=== PATIENT | male | born 1985 | race Two or more races ===

== ENCOUNTER 2024-03-21 11:12 | Inpatient (IN) | payer OTHER ==
[~2024-03-21] VITALS: Ht 165.1 cm; Wt 108.9 kg
[2024-03-21 12:40] LABS: BASOPHILS % (AUTO) 0.5 % (0.0-2.0); EOSINOPHILS # (AUTO) 0.1 K/uL (0.0-0.7); HEMATOCRIT 45 % (39-51); HEMOGLOBIN 15.1 g/dL (13.5-17.5); LYMPHOCYTES # (AUTO) 1.6 K/uL (0.8-4.8); LYMPHOCYTES % (AUTO) 24.7 % (20.0-44.0); MEAN CORPUSCULAR HEMOGLOBIN 29 PG (26.0-33.0); MEAN CORPUSCULAR HGB CONC 34 g/dl (31.0-36.0); MEAN CORPUSCULAR VOLUME 84 fL (80-96); MONOCYTES # (AUTO) 0.7 K/uL (0.1-1.30); MONOCYTES % (AUTO) 9.9 % (2.0-12.0); NEUTROPHILS # (AUTO) 4.2 K/uL (1.8-8.9); NEUTROPHILS % (AUTO) 63.9 % (43.0-81.0); PLATELET COUNT (AUTO) 230 K/uL (150-450); RED BLOOD CELL COUNT(AUTO) 5.29 MIL/uL (4.5-6.0); RED CELL DISTRIBUTION WIDTH 14.3 % (11.5-15.0); WHITE BLOOD COUNT (AUTO) 6.6 K/uL (4.3-11.0)
[2024-03-21 12:47] LABS: CREATININE 0.8 mg/dL (0.6-1.3); POTASSIUM 3.8 mmol/L (3.5-5.1)
[2024-03-21] MEDS: IV NS 0.9% 1,000 ML BAG IV ONE (13:42)
[2024-03-21] MEDS ORDERED: DESM0.2T4 PO (13:58)
[2024-03-21] MEDS ORDERED: TEMAZEPAM 15 MG CAPSULE PO PRN (16:30)
[2024-03-21] MEDS ORDERED: Z GUARD REMEDY 4 OZ OINT TP PRN (16:30)
[2024-03-21] MEDS ORDERED: ACETAMINOPHEN 325 MG TABLET PO PRN (16:30)
[2024-03-21] MEDS ORDERED: MAG HYDROX/AL HYDROX/SIMETH 30 ML UDC PO PRN (16:30)
[2024-03-21] MEDS ORDERED: MAGNESIUM HYDROXIDE 30 ML UDC PO PRN (16:30)
[2024-03-21 18:20] VITALS: BP 137/83; TEMP 98.1; O2SAT 98
[2024-03-21 20:00] VITALS: BP 137/88; TEMP 98; O2SAT 97
[2024-03-21] MEDS: DESMOPRESSIN ACETATE 0.1 MG TABLET PO SCH (21:07)
[2024-03-21] MEDS: PANTOPRAZOLE 40 MG TABLET.DR PO SCH (21:07)
[2024-03-21] MEDS: HYDROCODONE/APAP 5/325MG TABLET PO PRN (21:08)
[2024-03-21] MEDS: IV NS 0.9% 1,000 ML IV PRN (23:06)
[2024-03-22] VITALS: BP 129/79; TEMP 97.9; O2SAT 97
[2024-03-22 04:00] VITALS: BP 132/76; TEMP 98.2; O2SAT 97
[2024-03-22 06:30] LABS: CALCIUM, SERUM 8.3 mg/dL (8.5-10.1); CREATININE 0.7 mg/dL (0.6-1.3); MAGNESIUM 1.7 mg/dL (1.8-2.4); PHOSPHORUS 2.4 mg/dL (2.5-4.9); POTASSIUM 3.8 mmol/L (3.5-5.1)
[2024-03-22 07:23] LABS: BASOPHILS % (AUTO) 0.4 % (0.0-2.0); EOSINOPHILS # (AUTO) 0.1 K/uL (0.0-0.7); EOSINOPHILS % (AUTO) 1.2 % (0.0-6.0); HEMATOCRIT 42 % (39-51); HEMOGLOBIN 14.3 g/dL (13.5-17.5); LYMPHOCYTES # (AUTO) 1.7 K/uL (0.8-4.8); LYMPHOCYTES % (AUTO) 23.1 % (20.0-44.0); MEAN CORPUSCULAR HEMOGLOBIN 29 PG (26.0-33.0); MEAN CORPUSCULAR HGB CONC 34 g/dl (31.0-36.0); MEAN CORPUSCULAR VOLUME 85 fL (80-96); MONOCYTES # (AUTO) 0.7 K/uL (0.1-1.30); MONOCYTES % (AUTO) 9.3 % (2.0-12.0); NEUTROPHILS # (AUTO) 4.8 K/uL (1.8-8.9); PLATELET COUNT (AUTO) 222 K/uL (150-450); RED BLOOD CELL COUNT(AUTO) 4.95 MIL/uL (4.5-6.0); RED CELL DISTRIBUTION WIDTH 14.3 % (11.5-15.0); WHITE BLOOD COUNT (AUTO) 7.3 K/uL (4.3-11.0)
[2024-03-22 08:00] VITALS: BP 129/76; TEMP 98.8; O2SAT 94
[2024-03-22] MEDS: MAGNESIUM OXIDE 400 MG TABLET PO ONE (10:51)
[2024-03-22] MEDS: K PHOS NEUTRAL 250 MG TABLET PO ONE (15:50)
[2024-03-22 16:00] VITALS: BP 114/64; TEMP 98.1; O2SAT 93
[2024-03-22 20:00] VITALS: BP 127/75; TEMP 98.8; O2SAT 97
[2024-03-22] MEDS: DESMOPRESSIN ACETATE 0.1 MG TABLET PO SCH (20:40)
[2024-03-22] MEDS: HYDROCODONE/APAP 10/325MG TABLET PO PRN (20:50)
[2024-03-23] VITALS: BP 127/75; TEMP 98.8; O2SAT 97
[2024-03-23 06:58] LABS: CALCIUM, SERUM 7.2 mg/dL (8.5-10.1); CREATININE 0.8 mg/dL (0.6-1.3); POTASSIUM 3.8 mmol/L (3.5-5.1)
[2024-03-23 08:00] VITALS: BP 137/78; TEMP 97.5; O2SAT 97
[2024-03-23 16:00] VITALS: BP 113/71; TEMP 98.1; O2SAT 100
[2024-03-23] MEDS: IV NS 0.9% 1,000 ML IV PRN (18:45)
[2024-03-24] VITALS: BP 118/71; TEMP 98.6; O2SAT 100
[2024-03-24 04:00] VITALS: BP 125/75; TEMP 97.4; O2SAT 100
[2024-03-24 06:36] LABS: CALCIUM, SERUM 7.6 mg/dL (8.5-10.1); CREATININE 0.8 mg/dL (0.6-1.3)
[2024-03-24] MEDS: ONDANSETRON HCL/PF 4 MG/2 ML VIAL IVP PRN (07:57)
[2024-03-24 08:00] VITALS: BP 124/76; TEMP 98; O2SAT 97
[2024-03-24 16:00] VITALS: BP 137/85; TEMP 97.9; O2SAT 97
[2024-03-25] VITALS: BP 133/76; TEMP 97.2; O2SAT 99
[2024-03-25 06:58] LABS: CALCIUM, SERUM 7.5 mg/dL (8.5-10.1); CREATININE 0.8 mg/dL (0.6-1.3); POTASSIUM 3.8 mmol/L (3.5-5.1)
[2024-03-25 08:00] VITALS: BP 119/79; TEMP 97.1; O2SAT 99
[2024-03-25] MEDS: DESMOPRESSIN ACETATE 0.1 MG TABLET PO SCH (08:47)
[2024-03-25 16:00] VITALS: BP 134/80; TEMP 97.6; O2SAT 100
[2024-03-25 20:00] VITALS: BP 131/81; TEMP 98.8; O2SAT 100
[2024-03-26] VITALS: BP 131/81; TEMP 98.8; O2SAT 100
[2024-03-26 07:03] LABS: BASOPHILS % (AUTO) 0.3 % (0.0-2.0); EOSINOPHILS # (AUTO) 0.1 K/uL (0.0-0.7); EOSINOPHILS % (AUTO) 1.7 % (0.0-6.0); HEMATOCRIT 38 % (39-51); HEMOGLOBIN 13.8 g/dL (13.5-17.5); LYMPHOCYTES # (AUTO) 1.5 K/uL (0.8-4.8); LYMPHOCYTES % (AUTO) 19.9 % (20.0-44.0); MEAN CORPUSCULAR HEMOGLOBIN 30 PG (26.0-33.0); MEAN CORPUSCULAR HGB CONC 36 g/dl (31.0-36.0); MEAN CORPUSCULAR VOLUME 81 fL (80-96); MONOCYTES # (AUTO) 0.7 K/uL (0.1-1.30); MONOCYTES % (AUTO) 9.4 % (2.0-12.0); NEUTROPHILS # (AUTO) 5.3 K/uL (1.8-8.9); NEUTROPHILS % (AUTO) 68.7 % (43.0-81.0); PLATELET COUNT (AUTO) 227 K/uL (150-450); RED BLOOD CELL COUNT(AUTO) 4.67 MIL/uL (4.5-6.0); RED CELL DISTRIBUTION WIDTH 13.5 % (11.5-15.0); WHITE BLOOD COUNT (AUTO) 7.7 K/uL (4.3-11.0)
[2024-03-26 07:33] LABS: ALBUMIN 3.2 g/dL (3.4-5.0); BILIRUBIN,TOTAL 0.8 mg/dL (0.2-1.0); CALCIUM, SERUM 7.8 mg/dL (8.5-10.1); CREATININE 0.6 mg/dL (0.6-1.3); TOTAL PROTEIN, SERUM 6.8 g/dL (6.4-8.2)
[2024-03-26 07:43] LABS: POTASSIUM 3.5 mmol/L (3.5-5.1)
[2024-03-26 08:00] VITALS: BP 122/86; TEMP 98.4; O2SAT 100
[2024-03-26 11:30] LABS: CALCIUM, SERUM 7.7 mg/dL (8.5-10.1); POTASSIUM 3.8 mmol/L (3.5-5.1)
[2024-03-26 16:00] VITALS: BP 114/65; TEMP 98.4; O2SAT 100
[2024-03-27] VITALS: BP 118/68; TEMP 98.3; O2SAT 99
[2024-03-27 08:00] VITALS: BP 101/67; TEMP 98.2; O2SAT 100
[2024-03-27 10:08] LABS: BASOPHILS % (AUTO) 0.1 % (0.0-2.0); EOSINOPHILS % (AUTO) 0.2 % (0.0-6.0); HEMATOCRIT 42 % (39-51); HEMOGLOBIN 14.5 g/dL (13.5-17.5); LYMPHOCYTES # (AUTO) 0.7 K/uL (0.8-4.8); LYMPHOCYTES % (AUTO) 11.1 % (20.0-44.0); MEAN CORPUSCULAR HEMOGLOBIN 29 PG (26.0-33.0); MEAN CORPUSCULAR HGB CONC 34 g/dl (31.0-36.0); MEAN CORPUSCULAR VOLUME 84 fL (80-96); MONOCYTES % (AUTO) 16.2 % (2.0-12.0); NEUTROPHILS # (AUTO) 4.4 K/uL (1.8-8.9); NEUTROPHILS % (AUTO) 72.4 % (43.0-81.0); PLATELET COUNT (AUTO) 241 K/uL (150-450); RED CELL DISTRIBUTION WIDTH 14.2 % (11.5-15.0); WHITE BLOOD COUNT (AUTO) 6.1 K/uL (4.3-11.0)
[2024-03-27 10:19] LABS: CALCIUM, SERUM 8.1 mg/dL (8.5-10.1); CREATININE 1.2 mg/dL (0.6-1.3); POTASSIUM 3.9 mmol/L (3.5-5.1)
[2024-03-27 16:00] VITALS: BP 92/63; TEMP 98.2; O2SAT 98
[2024-03-27 20:35] VITALS: BP 119/76; TEMP 98.8; O2SAT 100
[2024-03-28 04:00] VITALS: BP 132/80; TEMP 98.8; O2SAT 100
[2024-03-28 07:37] LABS: BASOPHILS % (AUTO) 0.4 % (0.0-2.0); EOSINOPHILS % (AUTO) 0.5 % (0.0-6.0); HEMATOCRIT 41 % (39-51); HEMOGLOBIN 13.9 g/dL (13.5-17.5); LYMPHOCYTES # (AUTO) 1.5 K/uL (0.8-4.8); LYMPHOCYTES % (AUTO) 18.4 % (20.0-44.0); MEAN CORPUSCULAR HEMOGLOBIN 29 PG (26.0-33.0); MEAN CORPUSCULAR HGB CONC 34 g/dl (31.0-36.0); MEAN CORPUSCULAR VOLUME 85 fL (80-96); MONOCYTES # (AUTO) 1.3 K/uL (0.1-1.30); MONOCYTES % (AUTO) 15.7 % (2.0-12.0); NEUTROPHILS # (AUTO) 5.3 K/uL (1.8-8.9); PLATELET COUNT (AUTO) 242 K/uL (150-450); RED BLOOD CELL COUNT(AUTO) 4.74 MIL/uL (4.5-6.0); RED CELL DISTRIBUTION WIDTH 14.5 % (11.5-15.0); WHITE BLOOD COUNT (AUTO) 8.2 K/uL (4.3-11.0)
[2024-03-28 07:45] LABS: CREATININE 0.9 mg/dL (0.6-1.3); POTASSIUM 3.5 mmol/L (3.5-5.1)
[2024-03-28 08:00] VITALS: BP 130/70; TEMP 98.3; O2SAT 100
[2024-03-28] MEDS: DESMOPRESSIN ACETATE 0.1 MG TABLET PO SCH (08:25)
[2024-03-28 12:00] VITALS: BP 130/70; TEMP 98.6; O2SAT 100
[2024-03-28] MEDS ORDERED: DESM0.2T23 PO (12:59)
== END 2024-03-28 14:00 | disposition home or self-care (01) | DRG 558 ==
LOC: ER 11:18 → MEDSG1 17:25 → TELE1 17:54 → MEDSG1 03-22 08:32
PROVIDERS: ADMIT Nurse Practitioner Acute Care; ATTEND Nurse Practitioner Family
PROC: 05HF33Z Insertion of Infusion Device into Left Cephalic Vein, Percutaneous Approach (ICD-10-PCS; principal; 2024-03-23)
DX: M62.82 Rhabdomyolysis (principal); E23.2 Diabetes insipidus; E83.51 Hypocalcemia; Z68.39 Body mass index [BMI] 39.0-39.9, adult; E66.9 Obesity, unspecified; Z98.890 Other specified postprocedural states; Z79.899 Other long term (current) drug therapy; E11.9 Type 2 diabetes mellitus without complications
CPT/HCPCS: 36410; 36415; 80048-TC; 80053-TC; 82550-TC; 82553; 83735-TC; 84100-TC; 85025-TC; A4223; G0378; J2405; J7030